=== PATIENT | female | born 1950 | race African-American/Black ===

== ENCOUNTER 2021-10-31 09:20 | Outpatient (CLI) | payer MEDICARE | END 2021-10-31 09:21 | disposition home or self-care (01) | LOC: CSHCT 09:20 | PROVIDERS: ATTEND Surgery | DX: K63.9 Disease of intestine, unspecified (principal); K56.1 Intussusception; R16.0 Hepatomegaly, not elsewhere classified | CPT/HCPCS: 74177 ==

== ENCOUNTER 2022-04-05 11:29 | Emergency (ER) | payer MEDICARE ==
[2022-04-05] MEDS ORDERED: Heparin 10,000 UNITS/ 10 ML VIAL SLOW IVP PRN (15:37)
[2022-04-05] MEDS ORDERED: EPOETIN ALFA-EPBX (ESRD) 3,000 UNIT/ML VIAL IVP PRN (15:39)
[2022-04-05] MEDS ORDERED: EPOETIN ALFA-EPBX (ESRD) 2,000 UNIT/ML VIAL IVP PRN (15:39)
== END 2022-04-05 18:02 | disposition home or self-care (01) ==
LOC: CSHERS 11:29
DX: I13.2 Hypertensive heart and chronic kidney disease with heart failure and with stage 5 chronic kidney disease, or end stage renal disease (principal); N18.6 End stage renal disease; I50.9 Heart failure, unspecified; D63.1 Anemia in chronic kidney disease; E11.22 Type 2 diabetes mellitus with diabetic chronic kidney disease; E78.5 Hyperlipidemia, unspecified; Z99.2 Dependence on renal dialysis
CPT/HCPCS: 36430; 86850; 86900; 86901; 86920; 93005; P9016; 90935; 99284; G0257; J1642; J1644